=== PATIENT | female | born 1990 | race Caucasian/White ===

== ENCOUNTER → 2021-02-06 12:00 | Outpatient (BNVA) | payer MEDICAID, SELFPAY | PROVIDERS: Visit Provider Nurse Practitioner Family | DX: J32.0 Chronic maxillary sinusitis (principal) | CPT/HCPCS: 80053 ==

== ENCOUNTER → 2022-09-05 09:59 | Outpatient (BNVA) | payer MEDICAID, SELFPAY | PROVIDERS: PCP Nurse Practitioner Family; Visit Provider Nurse Practitioner Family | DX: Z30.09 Encounter for other general counseling and advice on contraception (principal) | CPT/HCPCS: 81025 ==

== ENCOUNTER 2023-06-20 15:21 | Emergency (ER) | payer MEDICAID, SELFPAY ==
[2023-06-20 15:40] VITALS: BP 146/99; PULSE 85; RESP 14; TEMP 36.8; O2SAT 100; BMI 29.4
--- NOTE | 2023-06-20 15:47 | W.ED.BACK ---
HPI - Back Pain/Injury General: Chief Complaint: Back Pain/Injury Stated Complaint: lower back pain Time Seen by Provider: 06/20/23 15:46 History of Present Illness: 34-year-old female comes in today with low back pain radiating to the right hip more so than the left. Patient states that she felt the pop in her right hip and since then has had pain radiating across the lower back. Patient is ambulatory. Patient appears nontoxic. Patient has had problems before in the past. 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 Review of Systems General: Reports: 10 or more systems reviewed and unremarkable except in HPI and below Musc: Reports: back pain PFSH ED PFSH: Social History Smoking and tobacco/nicotine status: current every day tobacco/nicotine user cigarettes Packs smoked per day: 0.5 Years cigarettes smoked: 15 Quit status (tobacco/nicotine): has tried quititng Number of times tried to quit tobacco: 2 Second hand smoke exposure: No Alcohol intake: current Alcohol intake frequency: few times a week Alcohol type: beer and hard liquor Substance/Drug Use: current Substance/Drug use frequency: daily Marital status: Physical Exam Const: COMMON NORMALS: alert HENMT: COMMON NORMALS: normocephalic HEAD & SCALP: normocephalic Neck/C-Spine: COMMON NORMALS: full ROM Resp: COMMON NORMALS: normal respiratory effort and clear to auscultation bilaterally AUSCULTATION: clear to auscultation bilaterally Cardio: COMMON NORMALS: regular rate and regular rhythm RATE: regular rate RHYTHM: regular rhythm Back/Pelvis: LUMBAR SPINE/LOWER BACK: No lumbar spinal tenderness and Yes paraspinal muscle tenderness SACROILIAC JOINTS: Yes SI joint(s) abnormal SI joint details: tender to palpation Extremity: COMMON NORMALS: full ROM Neuro: SENSORIUM/ORIENTATION: Yes alert Skin: COMMON NORMALS: turgor normal GENERAL SKIN EXAM: turgor normal Course Vital Signs: Vital signs: Vital Signs Temperature 98.3 F 06/20/23 15:40 Pulse Rate 85 06/20/23 15:40 Respiratory Rate 14 06/20/23 15:40 Blood Pressure 146/99 06/20/23 15:40 Pulse Oximetry 100 06/20/23 15:40 Oxygen Delivery Me thod Room Air 06/20/23 15:40 MDM - Back Pain/Injury Medical Decision Making 33-year-old female comes in today with low back pain radiating to right hip. Patient reports feeling a popping sensation in her right hip area about 2 days ago and since then has had increasing pain. Patient denies any other falls or injuries. Patient does have a history of prior symptoms but this seems to be persisting more. Differential diagnosis includes but not limited to intervertebral disc disease, facet arthropathy, lumbar strain, sciatica. X-ray was unremarkable. Reviewed exam with patient with recommendations for treatment and follow-up. Patient requested time off from work due to her manual lifting. I wrote for 1 week recommended follow-up with primary care at that time if she needs further time off. Patient reported understanding and agreed to plan. Labs Radiology Impressions Lumbar Spine X-Ray 06/20/23 15:57 IMPRESSION: 1. No acute fracture of the lumbar spine. CT scan would be recommended if there is continuing clinical concern for fracture. 2. Incidental/nonacute findings are listed in the report. All radiology interpretation(s) finalized by discharge Discharge Plan Discharge Patient Disposition: Home Clinical Impression: Strain of lumbar region Qualifiers: Encounter type: initial encounter Qualified Code(s): S39.012A - Strain of muscle, fascia and tendon of lower back, initial encounter Condition: Stable Prescriptions: New diclofenac sodium 75 mg tablet,delayed release (DR/EC) 75 mg PO BID Qty: 20 0RF cyclobenzaprine 5 mg tablet 5 mg PO BID PRN (Reason: muscle spasm) Qty: 20 0RF Discharge Orders: Discharge ED (Routine); Ordered 06/20/23 Ordered By: Quincy Jaramillo Referrals: Uzma Munoz FNP [Primary Care Provider] - Discharge Diet: Usual diet Discharge Activity: Increase activity as tolerated Patient Instructions: Low Back Strain (ED) Activity Restrictions/Additional Instructions: Activity as tolerated. Gentle stretching range of motion exercises. Use ice or heat for discomfort. Drink plenty of water with medication. May use muscle rub for further pain relief. Follow-up with primary care in 1 week for recheck. Return to ER for new concerns. 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
--- NOTE | 2023-06-20 15:57 | XRR_ITS ---
PROCEDURE INFORMATION: Exam: XR Lumbosacral Spine Exam date and time: 06/20/2023 4:04 PM Age: 33 years old Clinical indication: Low back pain TECHNIQUE: Imaging protocol: Radiologic exam of the lumbosacral spine. Views: 2 or 3 views. COMPARISON: No relevant prior studies available. FINDINGS: Bones/joints: 5 [id number] vertebral bodies. Vertebral body height is maintained. No subluxation. Normal bone mineralization. Intervertebral disc space height is preserved. No acute fracture. Soft tissues: No paravertebral soft tissue abnormality. No radiopaque foreign body. Vasculature: Multiple calcifications in the pelvis most likely representing calcified phleboliths. XR/XR lumbar spine 2-3V* [id number] IMPRESSION: 1. No acute fracture of the lumbar spine. CT scan would be recommended if there is continuing clinical concern for fracture. 2. Incidental/nonacute findings are listed in the report.
[2023-06-20] MEDS: dexamethasone 10 mg/mL INJ IM (16:58)
[2023-06-20] MEDS: orphenadrine 30 mg/mL Inj 2 mL 60 MG IM (16:59)
== END 2023-06-20 17:09 | disposition home or self-care (01) ==
PROVIDERS: Emergency Provider Nurse Practitioner Family; PCP Nurse Practitioner Family
DX: S39.012A Strain of muscle, fascia and tendon of lower back, initial encounter (principal); X58.XXXA Exposure to other specified factors, initial encounter
CPT/HCPCS: 72100; 96372; 99284; J1100; J2360

== ENCOUNTER 2023-08-31 15:12 | Emergency (ER) | payer MEDICAID, SELFPAY ==
[2023-08-31 15:20] VITALS: BP 159/95; PULSE 70; RESP 17; TEMP 36.7; O2SAT 99; BMI 31.2
--- NOTE | 2023-08-31 15:48 | ED_ITS ---
HPI - Abdominal Pain 2 General: Chief Complaint: Abdominal Pain Stated Complaint: genital pain Time Seen by Provider: 08/31/23 15:31 History of Present Illness: 33-year-old female presents with lower a bdominal pain discounted diffuse but mainly just suprapubic and diffuse around that. She reports start about an hour hour and a half ago. Her last menstrual period was about a month ago. She denies any urinary symptoms. She has some mild nausea, no vomiting. Associated Symptoms: Reports nausea; Denies chills, dysuria, fever(s) and vomiting Review of Systems 2 Const: Denies: fever(s) or chills Card: Denies: chest pain or palpitations Resp: Denies: dyspnea or productive cough GI: Reports: abdominal pain and nausea; Denies: vomiting : Denies: flank pain, difficulty voiding or dysuria Musc: Denies: neck pain or back pain Neuro: Denies: headache(s) PFSH ED 2 PFSH: Social History Smoking and tobacco/nicotine status: current every day tobacco/nicotine user cigarettes Packs smoked per day: 0.5 Years cigarettes smoked: 15 Quit status (tobacco/nicotine): has tried quititng Number of times tried to quit tobacco: 2 Second hand smoke exposure: No Alcohol intake: current Alcohol intake frequency: few times a week Alcohol type: beer and hard liquor Substance/Drug Use: current Substance/Drug use frequency: daily Marital status: Physical Exam 2 Const: COMMON NORMALS: no acute distress, patient oriented x3 and alert Resp: COMMON NORMALS: normal respiratory effort, No use of accessory muscles and clear to auscultation bilaterally AUSCULTATION: clear to auscultation bilaterally Cardio: COMMON NORMALS: regular rate and regular rhythm RATE: regular rate RHYTHM: regular rhythm GI: COMMON NORMALS: Soft to palpation PALPATION: Yes Soft to palpation and Yes Tenderness to palpation present (GI) (Suprapubic, lower abdomen) Extremity: COMMON NORMALS: normal to inspection, full ROM and capillary refill normal Neuro: COMMON NORMALS: patient oriented x3, moves all extremities, no focal motor deficits and no sensory deficits noted SENSORIUM/ORIENTATION: Yes alert Psych: COMMON NORMALS: mental status grossly normal, cooperative and normal affect Skin: COMMON NORMALS: no rashes or lesions noted GENERAL SKIN EXAM: no rashes or lesions noted Course 2 Vital Signs: Vital signs: Vital Signs Temperature 98.1 F 08/31/23 15:20 Pulse Rate 70 08/31/23 15:20 Respiratory Rate 17 08/31/23 15:20 Blood Pressure 159/95 08/31/23 15:20 Pulse Oximetry 99 08/31/23 15:20 Oxygen Delivery Me thod Room Air 08/31/23 15:20 MDM - Abdominal Pain Medical Decision Making Patient diagnostics ordered reviewed and interpreted by me. Patient's labs showed no acute findings. We discussed imaging such as CT or ultrasound. However at this time patient will defer and return if symptoms worsen. Patient has a history of ovarian cyst and is also close to when she should start her menstrual cycle. She will use [id number] Midol and ibuprofen as needed. I will prescribe her Zofran. She will follow-up with her OB or return if needed. Lab Data 08/31/23 15:49 08/31/23 15:49 Labs/Radiology: Laboratory Results WBC 4.33 10^3/uL (3.29-11.43) 08/31/23 15:49 RBC 4.08 10^6/uL (3.85-5.65) 08/31/23 15:49 Hgb 13.00 g/dL (11.27-16.99) 08/31/23 15:49 Hct 38.9 % (36-47) 08/31/23 15:49 MCV 95.3 fl (85-98) 08/31/23 15:49 MCH 31.9 pg (27-33) 08/31/23 15:49 MCHC 33.4 g/dL (30-55) 08/31/23 15:49 RDW 12.2 % (12.1-15.1) 08/31/23 15:49 Plt Count 159 10^3/cmm (157-399) 08/31/23 15:49 MPV 9.5 fL (7.4-10.4) 08/31/23 15:49 Neut % (Auto) 61.5 % 08/31/23 15:49 Lymph % (Auto) 31.6 % 08/31/23 15:49 [place] % (Auto) 5.5 % 08/31/23 15:49 Eos % (Auto) 0.9 % 08/31/23 15:49 Baso % (Auto) 0.5 % 08/31/23 15:49 Neut # (Auto) 2.66 10^3/uL (1.8-7.7) 08/31/23 15:49 Lymph # (Auto) 1.4 10^3/uL (0.8-4.8) 08/31/23 15:49 [place] # (Auto) 0.2 10^3/uL (0.2-0.9) 08/31/23 15:49 Eos # (Auto) 0.0 10^3/uL (0.0-0.8) 08/31/23 15:49 Baso # (Auto) 0.0 10^3/uL (0.0-0.1) 08/31/23 15:49 Nucleated RBC % (auto) 0 % 08/31/23 15:49 Nucleated RBCs # 0.0 /100WBC 08/31/23 15:49 Sodium 136 mmol/L (136-145) 08/31/23 15:49 Potassium 3.8 mmol/L (3.5-5.1) 08/31/23 15:49 Chloride 102 mmol/L (98-107) 08/31/23 15:49 Carbon Dioxide 24 mmol/L (22-29) 08/31/23 15:49 Anion Gap 13.8 (5-19) 08/31/23 15:49 BUN 16 mg/dL (6-20) 08/31/23 15:49 Creatinine 0.7 mg/dL (0.5-0.9) 08/31/23 15:49 GFR Calculation 97.0 mL/min (90-130) 08/31/23 15:49 Glucose 87 mg/dL (65-115) 08/31/23 15:49 Calculated Osmolality 283 mOsm/kg (285-295) L 08/31/23 15:49 Calcium 9.1 mg/dL (8.5-10.5) 08/31/23 15:49 Total Bilirubin 0.6 mg/dL (0.15-1.2) 08/31/23 15:49 AST 18 U/L (0-32) 08/31/23 15:49 ALT 20 U/L (0-33) 08/31/23 15:49 Alkaline Phosphatase 53 U/L (35-105) 08/31/23 15:49 Total Protein 7.1 g/dL (6.6-8.7) 08/31/23 15:49 Albumin 4.2 g/dL (3.5-5.2) 08/31/23 15:49 Globulin 2.9 g/dL (1.3-4.6) 08/31/23 15:49 Lipase 20 U/L (13-60) 08/31/23 15:49 HCG, Qual Negative (Negative) 08/31/23 16:19 Urine Color Yellow (Yellow) 08/31/23 16:19 Urine Appearance Clear (CLEAR) 08/31/23 16:19 Urine pH 6.5 (5-7) 08/31/23 16:19 Ur Specific [place] 1.015 (1.005-1.030) 08/31/23 16:19 Urine Protein Neg (Negative) 08/31/23 16:19 Urine Glucose (UA) Norm (Normal) 08/31/23 16:19 Urine Ketones Negative (Negative) 08/31/23 16:19 Urine Blood Neg (Negative) 08/31/23 16:19 Urine Nitrate Negative (Negative) 08/31/23 16:19 Urine Bilirubin Neg (Negative) 08/31/23 16:19 Urine Urobilinogen Norm mg/dL (Negative) 08/31/23 16:19 Ur Leukocyte Esterase Negative (Negative) 08/31/23 16:19 No radiology studies performed this visit Discharge Plan Discharge Patient Disposition: Home Clinical Impression: Lower abdominal pain, unspecified Condition: Stable Prescriptions: New ondansetron 4 mg tablet,disintegrating 4 mg PO Q8H PRN (Reason: nausea and vomiting) Qty: 20 0RF No Action diclofenac sodium 75 mg tablet,delayed release (DR/EC) 75 mg PO BID Qty: 20 0RF cyclobenzaprine 5 mg tablet 5 mg PO BID PRN (Reason: muscle spasm) Qty: 20 0RF Discharge Orders: Discharge ED (Routine); Ordered 08/31/23 Ordered By: Twan Moore Referrals: Uzma Munoz, ALDO [Primary Care Provider] - Discharge Diet: Usual diet Discharge Activity: Increase activity as tolerated Patient Instructions: Abdominal Pain (ED), Opioid Safety, Pain Management Activity Restrictions/Additional Instructions: Follow-up with your primary care provider or scientific linguist if symptoms not improving or return to the ER as needed. 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
[2023-08-31 15:53] LABS: Basophils % 0.5 %; Eosinophils % 0.9 %; Hematocrit 38.9 % (36-47); Lymphocytes # 1.4 10^3/uL (0.8-4.8); Lymphocytes % 31.6 %; Mean Corpuscular HGB Conc 33.4 g/dL (30-55); Mean Corpuscular Hemoglobin 31.9 pg (27-33); Mean Corpuscular Volume 95.3 fl (85-98); Mean Platelet Volume 9.5 fL (7.4-10.4); Monocytes # 0.2 10^3/uL (0.2-0.9); Monocytes % 5.5 %; Neutrophils # 2.66 10^3/uL (1.8-7.7); Neutrophils % 61.5 %; Nucleated Red Blood Cells % 0 %; Platelet Count 159 10^3/cmm (157-399); Red Blood Count 4.08 10^6/uL (3.85-5.65); Red Cell Distribution Width 12.2 % (12.1-15.1); White Blood Count 4.33 10^3/uL (3.29-11.43)
[2023-08-31 16:09] LABS: Alanine Aminotransferase 20 U/L (0-33); Albumin Level 4.2 g/dL (3.5-5.2); Alkaline Phosphatase 53 U/L (35-105); Anion Gap 13.8 (5-19); Aspartate Amino Transferase 18 U/L (0-32); Blood Urea Nitrogen 16 mg/dL (6-20); Calcium 9.1 mg/dL (8.5-10.5); Carbon Dioxide 24 mmol/L (22-29); Chloride 102 mmol/L (98-107); Creatinine Clr Calc Pharmacy 102.6011; Globulin 2.9 g/dL (1.3-4.6); Glucose 87 mg/dL (65-115); Lipase 20 U/L (13-60); Osmolality Calculated 283 mOsm/kg (285-295); Potassium 3.8 mmol/L (3.5-5.1); Sodium 136 mmol/L (136-145); Total Bilirubin 0.6 mg/dL (0.15-1.2); Total Protein 7.1 g/dL (6.6-8.7)
[2023-08-31 16:51] LABS: HCG Qualitative Urine. Negative (Negative)
[2023-08-31] MEDS: ketorolac 30 mg/mL INJ 15 MG IVP (17:07)
[2023-08-31 17:11] LABS: Add Urine Microscopic? NO; Charge for UA Resulting for Rev
[2023-08-31 17:14] LABS: Bilirubin Urine Neg (Negative); Blood Urine Neg (Negative); Glucose Urine UA Norm (Normal); Ketones Urine Negative (Negative); Leukocyte Esterase Urine Negative (Negative); Nitrate Urine Negative (Negative); Protein Urine Neg (Negative); Specific Gravity, Urine 1.015 (1.005-1.030); Urine Appearance Clear (CLEAR); Urine Color Yellow (Yellow); Urobilinogen Urine Norm (Negative); pH Urine 6.5 (5-7)
== END 2023-08-31 18:07 | disposition home or self-care (01) ==
PROVIDERS: Emergency Provider Student in an Organized Health Care Education/Training Program; PCP Nurse Practitioner Family
DX: R10.30 Lower abdominal pain, unspecified (principal); F17.210 Nicotine dependence, cigarettes, uncomplicated
CPT/HCPCS: 80053; 81003; 81025; 83690; 85025; 96374; 99284; J1885

== ENCOUNTER 2024-04-19 10:55 | Emergency (ER) | payer OTHER, MEDICAID, SELFPAY ==
[2024-04-19 11:04] VITALS: BP 149/99; PULSE 85; RESP 15; TEMP 36.7; O2SAT 100; BMI 36.1
[2024-04-19 13:17] LABS: Basophils % 0.2 %; Eosinophils # 0.1 10^3/uL (0.0-0.8); Eosinophils % 0.9 %; Hematocrit 35.8 % (36-47); Lymphocytes # 1.8 10^3/uL (0.8-4.8); Mean Corpuscular HGB Conc 34.4 g/dL (30-55); Mean Corpuscular Hemoglobin 31.5 pg (27-33); Mean Corpuscular Volume 91.6 fl (85-98); Mean Platelet Volume 9.6 fL (7.4-10.4); Monocytes # 0.3 10^3/uL (0.2-0.9); Monocytes % 4.7 %; Neutrophils # 3.54 10^3/uL (1.8-7.7); Nucleated Red Blood Cells % 0 %; Platelet Count 189 10^3/cmm (157-399); Red Blood Count 3.91 10^6/uL (3.85-5.65); Red Cell Distribution Width 11.7 % (12.1-15.1); White Blood Count 5.71 10^3/uL (3.29-11.43)
[2024-04-19 13:37] VITALS: BP 136/87; PULSE 62; RESP 14; O2SAT 98
--- NOTE | 2024-04-19 14:25 | USR_ITS ---
PROCEDURE INFORMATION: Exam: US First Trimester, Transabdominal Exam date and time: 04/19/2024 3:38 PM Age: 34 years old Clinical indication: Lmp or gestational age (in weeks): 11w2d; Antepartum complications; Bleeding; ; Additional info: Vaginal bleeding LABS AND CLINICAL REPORTS: Last menstrual period start date: 12/29/2023 Gestational age (Established): 16 w 0 d Estimated due date (Established): 10/04/2024 TECHNIQUE: Imaging protocol: Real-time transabdominal obstetrical ultrasound of the maternal pelvis and a first trimester , less than 14 weeks 0 days, with image documentation. COMPARISON: No relevant prior studies available. FINDINGS: GESTATION: Gestation: Single intrauterine gestation. Yolk sac is regular and round in morphology. Embryo/ cardiac activity (BPM): 170 bpm. heart rate of 170 bpm. Extra-embryonic membranes/Placenta: Unremarkable. No subchorionic bleed. Amniotic/Chorionic fluid: Amniotic and extra-amniotic fluid are normal for gestational age. BIOMETRY: Gestational age: Estimated age by last menstrual period is 16 weeks and 0 days MATERNAL: Uterus: Unremarkable. Cervix: Cervical length measures 5.7 cm. There is some fluid within the endocervical canal. Cervical length of 5.7 cm. The cervix appears closed. Right ovary/adnexa: Preserved flow to the right ovary. Left ovary/adnexa: Preserved flow to the left ovary. Intraperitoneal space: There is no free fluid in the pelvic cul-de-sac. Other findings: Estimated age by last menstrual. of 16 weeks and 0 days. US/US OB <= 14 weeks fetus [id number] IMPRESSION: Single live intrauterine gestation as above.
[2024-04-19 14:26] VITALS: BP 138/91; PULSE 74; RESP 14; O2SAT 99
--- NOTE | 2024-04-19 14:26 | ED_ITS ---
HPI - 2 General: Chief complaint: Vaginal Bleeding Stated complaint: 16-20 weeks , spotting Time Seen by Provider: 04/19/24 13:41 Source: patient and family Mode of arrival: ambulatory Limitations: no limitations History of Present Illness: This patient presented to the emergency department today because she is concerned about status of her . She states that her last normal period was probably in December 2023 and that she eventually discovered she was by home test in March. She has not had care to date. Today she is here because she had vaginal bleeding with her first a.m. urine and urine output this morning. She was confident it was not from her urinary tract but was vaginal bleeding. She states that she has had a little bit of spotting since that time and some mild cramping but nothing of concern or no severe pains. She is a A3. She has no history of any significant complications. She is blood type O Rh+. She denies recent intercourse in the last few days. 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 She denies any dysuria hematuria, frequency etc. No fevers or chills. No current medications. MD Complaint: vaginal bleeding Associated symptoms: Deny abdominal pain, dysuria, headache(s), nausea, syncope or vomiting Related Data Home Medications ?Medication ?Instructions ?Recorded ?Confirmed No Known Home Medications 04/19/2412/03 Allergies Allergy/AdvReac Type Severity Reaction Status Date / Time No Known Allergies Allergy Verified 08/31/23 15:23 Review of Systems 2 Const: Denies: fever(s) or chills ENMT: Denies: throat pain, odynophagia, nasal discharge or nasal congestion Card: Denies: chest pain, palpitations, syncope or pre-syncope Resp: Denies: dyspnea, productive cough or non-productive cough GI: Denies: abdominal pain, nausea or vomiting : Reports: vaginal bleeding; Denies: flank pain, difficulty voiding, dysuria or hematuria Musc: Denies: neck pain, back pain or extremity pain Skin/Breast: Denies: rash Neuro: Denies: headache(s), numbness in extremities or weakness in extremities Endo: Denies: polyuria or polydipsia PFSH ED 2 PFSH: Social History Smoking and tobacco/nicotine status: current every day tobacco/nicotine user cigarettes Packs smoked per day: 0.5 Years cigarettes smoked: 15 Quit status (tobacco/nicotine): has tried quititng Number of times tried to quit tobacco: 2 Second hand smoke exposure: No Alcohol intake: current Alcohol intake frequency: few times a week Alcohol type: beer and hard liquor Substance/Drug Use: current Substance/Drug use frequency: daily Marital status: Physical Exam 2 Narrative: EXAM NARRATIVE: She is alert in no acute distress and comfortable. Const: COMMON NORMALS: no acute distress, average body habitus and patient oriented x3 GENERAL APPEARANCE: cooperative and comfortable HENMT: COMMON NORMALS: normocephalic, Normal nasal mucous membranes and turbinates present and moist oral mucous membranes HEAD & SCALP: n ormocephalic NOSE: Normal nasal mucous membranes and turbinates present Eye: COMMON NORMALS: Equal, round and reactive pupils present, EOMs intact bilaterally and conjunctivae normal CONJUNCTIVA: Yes conjunctivae normal P UPIL: Yes Equal, round and reactive pupils present Neck/C-Spine: COMMON NORMALS: full ROM and Thyroid normal THYROID: Thyroid normal Chest: COMMONS NORMALS: normal inspection of the chest Resp: COMMON NORMALS: normal respiratory effort, No use of accessory muscles and clear to auscultation bilaterally AUSCULTATION: clear to auscultation bilaterally Cardio: COMMON NORMALS: regular rate, regular rhythm, No murmurs present (Cardio) and Peripheral pulses 2+ throughout RATE: regular rate RHYTHM: r egular rhythm PERIPHERAL PULSES: Peripheral pulses 2+ throughout GI: COMMON NORMALS: Normal to inspection, nondistended, normoactive bowel sounds present, Soft to palpation and non-tender PALPATION: Yes Soft to palpation : COMMON NORMALS: Yes no CVA tenderness BLADDER/KIDNEY EXAM: Yes no CVA tenderness EXTERNAL FEMALE EXAM: Yes Abnormal introitus SPECULUM EXAM - VAGINA: No laceration and No Vaginal discharge present SPECULUM EXAM - CERVIX: Yes Cervical os closed and Yes Other cervical findings present (Minimal cervical irritation and friability) Back/Pelvis: COMMON NORMALS: no CVA tenderness, thoracic and lumbar spine normal to inspection, no thoracic nor lumbar tenderness and thoraco-lumbar ROM normal Extremity: COMMON NORMALS: normal to inspection Neuro: COMMON NORMALS: patient oriented x3, moves all extremities, no focal motor deficits and no sensory deficits noted Psych: COMMON NORMALS: mental status grossly normal Skin: COMMON NORMALS: no rashes or lesions noted and no jaundice GENERAL SKIN EXAM: no rashes or lesions noted Course 2 Reevaluation(s): Reevaluation #1: radiation / 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 Time: 15:52 Vital Signs: Vital signs: Vital Signs Temperature 98.1 F 04/19/24 11:04 Pulse Rate 74 04/19/24 14:26 Respiratory Rate 14 04/19/24 14:26 Blood Pressure 138/91 04/19/24 14:26 Pulse Oximetry 99 04/19/24 14:26 Oxygen Delivery Me thod Room Air 04/19/24 14:26 MDM - OB/Uterine Contractions Medical Decision Making Patient presented as noted in HPI. Uncertain gestation at this point but based on LMP data probably between 16 and 20 weeks. Had an episode of vaginal bleeding this morning without any known inciting event. She has type O Rh+. She has a nontender abdomen. No history of use of Clomid or other fertility medications and no history of PID. Hemoglobin and platelet count are normal. Will go ahead and proceed with a formal OB ultrasound to establish current status. Ultrasound was obtained which was reassuring and showed intrauterine gestation without any evidence of extrauterine masses, free pelvic fluid or other concerning findings suggestive of that at this time there is no evidence of ovarian torsion, ovarian mass, ectopic etc. After ultrasounds completed a speculum examination was completed. There was a small amount of friability noted at the cervix but there was no discharge no lacerations or any other introital cervical or vaginal abnormalities. At this time she is stable without any evidence of an ongoing emergency medical condition. No evidence of a threatened AB etc. We discussed current etiologies of bleeding, need for pelvic rest, need for OB follow-up for reevaluation. She voiced understanding. Stable for discharge. Lab Data I reviewed the patient's lab results. 04/19/24 13:05 Radiology Impressions Ultrasound 04/19/24 14:25 IMPRESSION: Single live intrauterine gestation as above. Laboratory Results WBC 5.71 10^3/uL (3.29-11.43) 04/19/24 13:05 RBC 3.91 10^6/uL (3.85-5.65) 04/19/24 13:05 Hgb 12.30 g/dL (11.27-16.99) 04/19/24 13:05 Hct 35.8 % (36-47) L 04/19/24 13:05 MCV 91.6 fl (85-98) 04/19/24 13:05 MCH 31.5 pg (27-33) 04/19/24 13:05 MCHC 34.4 g/dL (30-55) 04/19/24 13:05 RDW 11.7 % (12.1-15.1) L 04/19/24 13:05 Plt Count 189 10^3/cmm (157-399) 04/19/24 13:05 MPV 9.6 fL (7.4-10.4) 04/19/24 13:05 Neut % (Auto) 62.0 % 04/19/24 13:05 Lymph % (Auto) 32.0 % 04/19/24 13:05 [place] % (Auto) 4.7 % 04/19/24 13:05 Eos % (Auto) 0.9 % 04/19/24 13:05 Baso % (Auto) 0.2 % 04/19/24 13:05 Neut # (Auto) 3.54 10^3/uL (1.8-7.7) 04/19/24 13:05 Lymph # (Auto) 1.8 10^3/uL (0.8-4.8) 04/19/24 13:05 [place] # (Auto) 0.3 10^3/uL (0.2-0.9) 04/19/24 13:05 Eos # (Auto) 0.1 10^3/uL (0.0-0.8) 04/19/24 13:05 Baso # (Auto) 0.0 10^3/uL (0.0-0.1) 04/19/24 13:05 Nucleated RBC % (auto) 0 % 04/19/24 13:05 Nucleated RBCs # 0.0 /100WBC 04/19/24 13:05 Ser , Semi-Qnt 09996.00 mIU/mL 04/19/24 13:05 Urine Color Yellow (Yellow) 04/19/24 16:08 Urine Appearance Clear (CLEAR) 04/19/24 16:08 Urine pH 7.0 (5-7) 04/19/24 16:08 Ur Specific [place] 1.011 (1.005-1.030) 04/19/24 16:08 Urine Protein Negative (Negative) 04/19/24 16:08 Urine Glucose (UA) Negative (Normal) 04/19/24 16:08 Urine Ketones Negative (Negative) 04/19/24 16:08 Urine Blood Negative (Negative) 04/19/24 16:08 Urine Nitrate Negative (Negative) 04/19/24 16:08 Urine Bilirubin Negative (Negative) 04/19/24 16:08 Urine Urobilinogen 0.2 mg/dL (Negative) 04/19/24 16:08 Ur Leukocyte Esterase Negative (Negative) 04/19/24 16:08 Urine RBC 0-2 /hpf (0-2) 04/19/24 16:08 Urine WBC 0-5 /hpf (0-5) 04/19/24 16:08 Ur Squamous Epith Cells 0-5 /hpf (0-5) 04/19/24 16:08 Amorphous Sediment Not Reportable 04/19/24 16:08 Urine Bacteria None seen /hpf (NONE) 04/19/24 16:08 Hyaline Casts 0-4 /lpf H 04/19/24 16:08 Blood Type O Positive 04/19/24 13:05 Rho(D) Type Rh positive 04/19/24 13:05 All radiology interpretation(s) finalized by discharge Discharge Plan Discharge Patient Disposition: Home Clinical Impression: Vaginal bleeding in , Intrauterine Condition: Stable Prescriptions: No Action No Known Home Medications Discharge Orders: Discharge ED (Routine); Ordered 04/19/24 Ordered By: Abiel Farias Referrals: Uzma Munoz FNP [Primary Care Provider] - Discharge Diet: Usual diet Discharge Activity: Limit activity as instructed Patient Instructions: Opioid Safety, Pain Management Activity Restrictions/Additional Instructions: As we discussed while you are in the Emergency Department there is no evidence of any serious condition at this time. You have a normal at approximately 11-1/2 weeks. You do have some irritation of your cervix which may be causing your bleeding however this needs to be followed up by your forest fire officer. Please call and make arrangements for OB follow-up this coming week. If you have increased bleeding or any other concerns return to this or the nearest emergency department. Until you get OB follow-up we do not recommend using tampons, having sexual intercourse etc. Print Language: Bel[place]ian Coding Level of Care Code ED Home Specialist for Hank Britt
[2024-04-19 16:23] LABS: Bilirubin Urine Negative (Negative); Blood Urine Negative (Negative); Glucose Urine UA Negative (Normal); Ketones Urine Negative (Negative); Leukocyte Esterase Urine Negative (Negative); Nitrate Urine Negative (Negative); Protein Urine Negative (Negative); Specific Gravity, Urine 1.011 (1.005-1.030); Urine Appearance Clear (CLEAR); Urine Color Yellow (Yellow); Urobilinogen Urine 0.2 mg/dL (Negative)
[2024-04-19 16:34] LABS: Add Urine Microscopic? YES; Bacteria Urine None Seen /hpf; Hyaline Casts Urine 0-4 /lpf; RBC Urine 0-2 /hpf (0-2); Squamous Epithelial Cell Urine 0-5 /hpf (0-5); WBC Urine 0-5 /hpf (0-5)
[2024-04-19 18:24] VITALS: BP 157/90; PULSE 66; O2SAT 99
== END 2024-04-19 18:33 | disposition home or self-care (01) ==
PROVIDERS: Emergency Provider Emergency Medicine; PCP Nurse Practitioner Family
DX: O20.9 Hemorrhage in early pregnancy, unspecified (principal); F17.210 Nicotine dependence, cigarettes, uncomplicated
CPT/HCPCS: 76801; 81001; 84702; 85025; 86900; 99284; E0352

== ENCOUNTER 2024-10-28 14:34 | Outpatient (CLI) | payer MEDICAID, SELFPAY ==
[2024-10-28 14:46] VITALS: BP 136/87; PULSE 97
[2024-10-28 14:51] VITALS: BMI 40.6
[2024-10-28 15:03] VITALS: BP 131/88; PULSE 106
== END 2024-10-28 15:15 | disposition home or self-care (01) ==
LOC: OPOB 14:35 → OBGYN 14:36
PROVIDERS: PCP Nurse Practitioner Family; Visit Provider Family Medicine
DX: O26.899 Other specified pregnancy related conditions, unspecified trimester (principal); Z3A.00 Weeks of gestation of pregnancy not specified
CPT/HCPCS: 59025; 99211

== ENCOUNTER 2024-11-07 15:41 | Inpatient (IN) | payer OTHER, MEDICAID, SELFPAY ==
[2024-11-07] VITALS (40 sets, daily range): BP systolic 115–158; BP diastolic 59–97; PULSE 74–100; RESP 16–18; TEMP 36.3–37; O2SAT 96–99; BMI 39.9
[2024-11-07 15:07] LABS: Hematocrit 33.4 % (36-47); Hemoglobin 11.30 g/dL (11.27-16.99); Mean Corpuscular HGB Conc 33.8 g/dL (30-55); Mean Corpuscular Hemoglobin 30.6 pg (27-33); Mean Corpuscular Volume 90.5 fl (85-98); Nucleated Red Blood Cells % 0 %; Platelet Count 222 10^3/cmm (157-399); Red Blood Count 3.69 10^6/uL (3.85-5.65); White Blood Count 7.44 10^3/uL (3.29-11.43)
[2024-11-07 15:20] LABS: PCP Screen Urine Negative (Negative)
[2024-11-07] MEDS: oxytocin 30 UNIT/500 ML BAG IV (16:01)
[2024-11-07] MEDS: fentaNYL 50 mcg/mL INJ 2mL IVP (18:38)
[2024-11-07] MEDS: ROPivacaine syringe 100 MG/50 ML SYRINGE 10 MG EPIDURAL (19:58)
--- NOTE | 2024-11-07 20:01 | ANES.PREANE2 ---
Pre-Anesthetic Assessment Height/Weight: Height 1.57 m Weight 98.883 kg Temp Pulse Resp BP Pulse Ox O2 Del Method 98.6 F 84 18 151/89 99 Room Air 11/07/24 14:50 11/07/24 19:55 11/07/24 18:38 11/07/24 19:55 11/07/24 19:55 11/07/24 15:05 Preop Diagnosis: Active Labor Labor Epidural Familial anesthetic complications: none Was Beta Cris taken within 24 hours: N/A Was Clonidine taken within 24 hours: N/A Last intake: clears current Social Tobacco (+THC) Exam alert, oriented x 3 and clear to auscultation bilaterally Airway Submandibular: within normal limits Cervical ROM: within normal limits Mallampati: Class I Dentition: full History/ROS No significant history except as noted Pulmonary None reported CV/HEM None reported None reported Hepatic None reported GI Gastroesophageal Reflux Disease Metabolic None reported Musc/skel None reported Neuropsych None reported denies recent infections Anesthetic Plan ASA status: 2 Anesthesia: Regional (specify below) Other: Labor Epidural Medications/Allergies Home Medications ?Medication ?Instructions ?Recorded ?Confirmed ?Last Taken ?Type Baby Aspirin 81 mg PO DAILY 10/28/24 11/07/24 10/28/24 History 1 cap PO DAILY 10/28/24 11/07/24 10/28/24 History Allergies Allergy/AdvReac Type Severity Reaction Status Date / Time No Known Allergies Allergy Verified 10/28/24 14:55 Current Medications Generic Name Dose Route Start Last Admin Trade Name Freq PRN Reason Stop Dose Admin Fentanyl 25 - 100 mcg 11/07/24 14:17 11/07/24 18:38 Fentanyl 50 Mcg/Ml Inj 2ml IVP 25 mcg Q1H PRN Administration SEVERE PAIN Dextrose/Lactated Ringer's 1,000 mls @ 125 mls/hr 11/07/24 14:30 11/07/24 18:38 Dextrose 5%-Lactated Ringers IV 0 mls/hr .Q8H ELENA Infusion Oxytocin 30 unit in 500 mls @ 1 mls/hr 11/07/24 14:45 11/07/24 18:00 Pitocin IV 9 milliunit/min .Q24H ELENA 9 mls/hr Protocol Titration 1 MILLIUNIT/MIN Lactated Ringer's 1,000 mls @ 999 mls/hr 11/07/24 15:42 11/07/24 18:38 Lactated Ringers IV 999 mls/hr .Q1H1M PRN Administration See label comments [facility] Anesthesia Social History Smoking and tobacco/nicotine status: current every day tobacco/nicotine user cigarettes Packs smoked per day: 0.5 Years cigarettes smoked: 15 Quit status (tobacco/nicotine): has tried quititng Number of times tried to quit tobacco: 2 Second hand smoke exposure: No Alcohol intake: current Alcohol intake frequency: few times a week Alcohol type: beer and hard liquor Substance/Drug Use: current Substance/Drug use frequency: daily Marital status: Female Reproductive History : 6 Data Anesthesia 11/07/24 14:30 Short CBC 11/07/24 Range/Units 14:30 WBC 7.44 (3.29-11.43) 10^3/uL Hgb 11.30 (11.27-16.99) g/dL Hct 33.4 L (36-47) % MCV 90.5 (85-98) fl Plt Count 222 (157-399) 10^3/cmm Neut % (Auto) 72.0 % Neut # (Auto) 5.36 (1.8-7.7) 10^3/uL Blood Bank 11/07/24 14:30 Blood Type O Positive Rho(D) Type Rh positive Antibody Screen Negative Anesthesia Procedures Epidural Time Out Performed: Yes Consents Signed: Procedure Consent Consent: from patient, risks and benefits reviewed and patient agrees to proceed Lumbar Level: L3-L4 Epidural position: sitting Epidural procedure: sterile prep of area, 1% lidocaine to numb the area, negative for paresthesia passed, test dose given, 1.5% xylocaine 1:200k epi, placed PCEA, no systemic response, sterile dressing applied, L.U.D. no apparent complications and 0.2% Ropiavacaine @ mls/hr (10) Additional Comments: TOMÁS @ 6cm , first attempt, - heme -csf. catheter threaded to 12cm with ease. Adequate analgesia achieved. CSE 0.5 ml 0.25% Bupivicaine given intrathecally.
--- NOTE | 2024-11-07 20:52 | PM.OPHPUD ---
Labor & Delivery H&P Update Date of Procedure: November 07, 2024 Date H&P Performed: 11/04/24 Admission Diagnosis: at 39 weeks 3 days gestation Preop diagnosis: Induction
--- NOTE | 2024-11-07 20:53 | P.PCNOB_ITS ---
Delivery Note: Date of delivery: November 07, 2024 Estimated blood loss (mL): 250 Pre-Delivery Course: The patient had routine care at [facility]. She had a history of prior preeclampsia and was on low-dose aspirin during the . labs: Blood type O+ antibody negative, hepatitis B nonreactive, hepatitis C nonreactive, HIV nonreactive, rubella immune, GC chlamydia negative, RPR nonreactive, UDS positive for marijuana, she failed her 1 hour but passed the 3-hour glucose tolerance test, she was GBS negative. Delivery: This is a 34-year-old G6, P2 at 39 weeks 3 days gestation who was admitted for an induction. The patient's cervix was favorable and she was started on Pitocin. She had spontaneous rupture of membranes with clear fluid. She progressed rather rapidly after that and received CSE anesthesia. She only had to push through half of a contraction to have a normal spontaneous vaginal delivery of a viable male infant weight 3230 g, 7 pounds 2 ounces, Apgars 8 and 9 over an intact perineum. The was suctioned at delivery and placed on the mother's chest. After good 60 seconds the cord was clamped and cut. With gentle traction the cord easily avulsed from the placenta. The placenta was then grasped and manually extracted in 1 piece. It was grossly normal to inspection. There were first-degree periclitoral lacerations that did not require sutures. There was a first-degree midline vaginal laceration that did not require suturing. Mother and were doing well after delivery. A&P Assessment and plan 1. Normal spontaneous vaginal delivery: 2. Sterilization consult: The patient had previously requested bilateral tubal ligation and had signed Medicaid form. If she still wishes to proceed we will schedule for tomorrow. PDMP PDMP Reviewed: Not Reviewed Coding Level of Care Code Acute Code for Chg Fwd Diagnoses Normal spontaneous vaginal delivery O80 Sterilization consult Z30.09
[2024-11-08] VITALS (17 sets, daily range): BP systolic 102–146; BP diastolic 66–89; PULSE 69–104; RESP 15–17; TEMP 36.6–37.1; O2SAT 90–99; BMI 39.9
[2024-11-08] MEDS: benzocaine-menthol 78 gm Canister 1 SPRAY TOPICAL (00:27)
[2024-11-08] MEDS: citric acid-sodium citrate 30 mL UDC PO (08:48)
[2024-11-08] MEDS: metoclopramide 5 mg/mL SDV 2 mL 10 MG IVP (08:49)
--- NOTE | 2024-11-08 08:50 | P.ANESUD_ITS ---
Pre-Anesthetic Update Pre-Anesthetic Assessment: Date of Surgery/Procedure: 11/08/24 Preop Neha gnosis: desired sterility Proposed Procedure: Operation Date: 11/08/24 09:10 Proposed Procedures p Post Bilateral Tubal Ligation(Bilateral) - Janene Logan MD Any changes to Pre-Anesthetic Assessment?: No Last Intake: soilds 11/07 2300, liquids 11/07 0000 Labs Last 48hrs: Short CBC 11/07/24 Range/Units 14:30 WBC 7.44 (3.29-11.43) 10^ 3/uL Hgb 11.30 (11.27-16.99) g/ dL Hct 33.4 L (36-47) % MCV 90.5 (85-98) fl Plt Count 222 (157-399) 10^3/c mm Neut % (Auto) 72.0 % Neut # (Auto) 5.36 (1.8-7.7) 10^3/u L Blood Bank 11/07/24 14:30 Blood Type O Positive Rho(D) Type Rh positive Antibody Screen Negative Vitals: Temperature 98.4 F 11/08/24 06:35 Temperature Source Oral 11/08/24 06:35 Pulse Rate 84 11/08/24 04:45 Pulse Rhythm Regular 11/07/24 15:05 Respiratory Rate 16 11/08/24 06:35 Respiratory Effort Spontaneous, Non- Labored 11/07/24 18:38 Respiratory Depth Normal 11/07/24 18:38 Respiratory Patter n Normal 11/07/24 18:38 Blood Pressure 126/78 11/08/24 06:35 Blood Pressure Lelo n 94 11/08/24 06:35 Blood Pressure Pos ition Left Lateral 11/08/24 01:55 Pulse Oximetry 99 11/08/24 04:45 Oxygen Delivery Me thod Room Air 11/08/24 04:45 Exam: Pre-Anes Outpt Exam: alert, oriented x 3 and clear to auscultation bilaterally
--- NOTE | 2024-11-08 09:00 | PM.HP ---
Providers/Chief Complaint Admitting Physician: Janene Logan MD Primary Care Provider: ALDO Bowman Chief Complaint: IOL History of Present Illness Maren No is a 34 year old female G6 now P3 who had a normal spontaneous vaginal delivery of a viable male infant yesterday evening. The patient previously expressed desire and signed Medicaid form wanting to proceed with bilateral tubal ligation. She is scheduled for the procedure this morning. She has no questions or concerns. Review of Systems Narrative: No fevers chills, no chest pain or shortness of breath, average vaginal bleeding, no abdominal tenderness Medications/Allergies Home Medications ?Medication ?Instructions ?Recorded ?Confirmed ?Last Taken ?Type Baby Aspirin 81 mg PO DAILY 10/28/24 11/07/24 10/28/24 History 1 cap PO DAILY 10/28/24 11/07/24 10/28/24 History Allergies Allergy/AdvReac Type Severity Reaction Status Date / Time No Known Allergies Allergy Verified 10/28/24 14:55 PFSH Acute PFSH: Social History Smoking and tobacco/nicotine status: current every day tobacco/nicotine user cigarettes Packs smoked per day: 0.5 Years cigarettes smoked: 15 Quit status (tobacco/nicotine): has tried quititng Number of times tried to quit tobacco: 2 Second hand smoke exposure: No Alcohol intake: current Alcohol intake frequency: few times a week Alcohol type: beer and hard liquor Substance/Drug Use: current Substance/Drug use frequency: daily Marital status: Female Reproductive History: : 6 Para: 3 Spontaneous abortions: Yes (3) Vitals/I&O/Wt Last Vital Signs Temp 98.4 F 11/08/24 06:35 Pulse 84 11/08/24 04:45 Resp 16 11/08/24 06:35 BP 126/78 11/08/24 06:35 Pulse Ox 99 11/08/24 04:45 O2 Del Method Room Air 11/08/24 04:45 11/07/24 11/08/24 11/08/24 22:59 06:59 14:59 Intake Total 337.066 / 337.066 Balance 337.066 / 337.066 Weight last 48 hrs Weight 98.883 kg Weight 98.883 kg Physical Exam Narrative: Alert and oriented, sitting up in bed holding the infant, heart regular rate and rhythm, lungs clear to auscultation bilaterally, abdomen is soft and nontender, extremities have 1+ edema but no calf tenderness. Data 11/07/24 14:30 A&P Assessment and plan 1. Sterilization consult: Patient is aware that bilateral tubal ligation is considered permanent and not reversible. She would still like to proceed. PDMP PDMP Reviewed: Not Reviewed Attestations Medical Necessity Statement*: Routine surgery and care Coding Level of Care Code Acute Code for Chg Fwd Diagnoses Sterilization consult Z30.09
[2024-11-08] MEDS: lidocaine-epi 1% 20 mL INJ INJECTION (09:06)
[2024-11-08] MEDS: ceFAZolin 2,000 mg SDV 2000 MG IVP (09:07)
--- NOTE | 2024-11-08 10:36 | PM.OP ---
Operative Report Date of procedure: November 08, 2024 Pre-op diagnosis: Desired permanent surgical sterilization Post-op diagnosis: Same Procedure done: bilateral tubal ligation Specimens removed/disposition: Segments of right and left fallopian tubes Pathology: Segments of right and left fallopian tubes Surgeon: Janene Logan MD Estimated blood loss (mL): 2 IV fluids (mL): 700 Complications: None Procedure: After informed consent the patient was taken to the OR where general anesthesia was administered. She was prepped and draped in normal sterile fashion in dorsal supine position. A curvilinear infraumbilical incision was made through the skin sharply and then carried through bluntly to the underlying fascia. The fascia was grasped with Allis clamps and entered sharply using the [place]zen[place]. The peritoneum was then entered bluntly. The left fallopian tube was grasped with a [place] and brought into the operative field. Fimbria were visualized. The distal portion of the tube was ligated and excised. Tubal ostia were visualized. The cut portions of the tube were coagulated using the Bovie and hemostasis was obtained prior to returning them to the abdomen. Segment of the tube was sent to pathology. The right fallopian tube was then grasped with a Y[place] and brought into the operative field. Fimbria were visualized. A distal portion of the tube was ligated and excised. Segment of the tube was sent to pathology. Cut portions of the tube were coagulated with the Bovie. Excellent hemostasis was obtained. Portions of the tube were returned to the abdomen. The fascia was then reapproximated using 0 Vicryl in a running fashion. The skin was then reapproximated using 4-0 Vicryl in a running fashion. 10 mL of 2% lidocaine was injected circumferentially around the incision site. Steri-Strips and a pressure bandage were applied. Patient was awakened and taken to recovery in good condition. Sponge instrument and needle counts were correct.
--- NOTE | 2024-11-08 10:43 | P.PN_ITS ---
Subjective 2 Subjective: Patient is doing well. She is ambulating and is n.p.o. for her procedure this morning. Vitals/I&O/Wt Last Vital Signs Temp 98.4 F 11/08/24 06:35 Pulse 84 11/08/24 04:45 Resp 16 11/08/24 06:35 BP 126/78 11/08/24 06:35 Pulse Ox 99 11/08/24 04:45 O2 Del Method Room Air 11/08/24 04:45 11/07/24 11/08/24 11/08/24 22:59 06:59 14:59 Intake Total 337.066 / 337.066 Balance 337.066 / 337.066 Weight last 48 hrs Weight 98.883 kg Weight 98.883 kg Physical Exam 2 Narrative: Alert and oriented sitting up in bed feeding infant, heart regular rate and rhythm, lungs clear to auscultation bilaterally, abdomen is soft and nontender, extremities have 1+ edema but no calf tenderness Data 11/08/24 12:10 A&P Assessment and plan 1. Normal spontaneous vaginal delivery: Routine care 2. Sterilization consult: Routine bilateral tubal ligation this morning with routine postoperative care PDMP PDMP Reviewed: Not Reviewed Attestations 2 Medical Necessity Statement*: Routine care Coding Level of Care Code Acute Code for Chg Fwd Diagnoses Normal spontaneous vaginal delivery O80 Sterilization consult Z30.09
[2024-11-08] MEDS: HYDROcodone-acetaminophen 5-325 mg Tablet 1 TAB PO ×3 (11:41→20:46)
[2024-11-08 13:07] LABS: Hematocrit 28.9 % (36-47); Hemoglobin 9.60 g/dL (11.27-16.99); Mean Corpuscular HGB Conc 33.2 g/dL (30-55); Mean Corpuscular Hemoglobin 30.6 pg (27-33); Mean Corpuscular Volume 92.0 fl (85-98); Platelet Count 176 10^3/cmm (157-399); Red Blood Count 3.14 10^6/uL (3.85-5.65); White Blood Count 8.64 10^3/uL (3.29-11.43)
[2024-11-09] MEDS: HYDROcodone-acetaminophen 5-325 mg Tablet 1 TAB PO ×4 (00:55→14:01)
[2024-11-09 05:06] VITALS: BP 107/68; PULSE 76; RESP 16; TEMP 36.8
[2024-11-09] MEDS: PRENATAL VIT NO.130/IRON/FOLIC 1 EACH TABLET PO (09:12)
--- NOTE | 2024-11-09 10:07 | PC.NURSE ---
dressing removed by , dry and intact, open to air
--- NOTE | 2024-11-09 10:17 | PM.DCS ---
Discharge Providers Date of Admission: 11/07/24 15:41 Date of Discharge: November 09, 2024 Attending Provider at Admission: Janene Logan MD Attending Provider at Discharge: Janene Logan MD Primary Care Provider: ALDO Bowman Diagnoses at Discharge Discharge Diagnosis 1. Normal spontaneous vaginal delivery: 2. Sterilization consult: Reason for Visit Reason for Visit: IOL Hospital Course Hospital Course This is a 34-year-old G6 now P3 who had a normal spontaneous vaginal delivery of a viable male infant at 39 weeks 3 days gestation. She underwent a bilateral tubal ligation about 24 hours ago. She is ambulating, tolerating a regular diet, has average vaginal bleeding. Physical Exam Narrative: Alert and oriented, sitting up in bed, heart regular rate and rhythm, lungs clear to auscultation bilaterally, abdomen has good bowel sounds, abdomen is soft with appropriate postoperative tenderness, incision is clean dry and intact, extremities have 1+ edema but no calf tenderness Discharge Data Studies Completed and Pending Pending at discharge Category Date Time Status Pathology: Surgical [PTH] Routine Pth 11/08/24 10:19 Ordered Laboratory Results WBC 8.64 10^3/uL (3.29-11.43) 11/08/24 12:10 RBC 3.14 10^6/uL (3.85-5.65) L 11/08/24 12:10 Hgb 9.60 g/dL (11.27-16.99) L 11/08/24 12:10 Hct 28.9 % (36-47) L 11/08/24 12:10 MCV 92.0 fl (85-98) 11/08/24 12:10 MCH 30.6 pg (27-33) 11/08/24 12:10 MCHC 33.2 g/dL (30-55) 11/08/24 12:10 RDW 12.8 % (12.1-15.1) 11/08/24 12:10 Plt Count 176 10^3/cmm (157-399) 11/08/24 12:10 MPV 11.1 fL (7.4-10.4) H 11/08/24 12:10 Neut % (Auto) 72.0 % 11/07/24 14:30 Lymph % (Auto) 21.8 % 11/07/24 14:30 [place] % (Auto) 5.0 % 11/07/24 14:30 Eos % (Auto) 0.7 % 11/07/24 14:30 Baso % (Auto) 0.1 % 11/07/24 14:30 Neut # (Auto) 5.36 10^3/uL (1.8-7.7) 11/07/24 14:30 Lymph # (Auto) 1.6 10^3/uL (0.8-4.8) 11/07/24 14:30 [place] # (Auto) 0.4 10^3/uL (0.2-0.9) 11/07/24 14:30 Eos # (Auto) 0.1 10^3/uL (0.0-0.8) 11/07/24 14:30 Baso # (Auto) 0.0 10^3/uL (0.0-0.1) 11/07/24 14:30 Nucleated RBC % (auto) 0 % 11/07/24 14:30 Nucleated RBCs # 0.0 /100WBC 11/07/24 14:30 Urine Opiates Screen Negative ng/mL (Negative) 11/07/24 14:25 Ur Barbiturates Screen Negative ng/mL (Negative) 11/07/24 14:25 Ur Phencyclidine Scrn Negative ng/mL (Negative) 11/07/24 14:25 Ur Amphetamines Screen Negative ng/mL (Negative) 11/07/24 14:25 U Benzodiazepines Scrn Negative ng/mL (Negative) 11/07/24 14:25 Urine Cocaine Screen Negative ng/mL (Negative) 11/07/24 14:25 U Marijuana (THC) Screen Positive ng/mL (Negative) H 11/07/24 14:25 Blood Type O Positive 11/07/24 14:30 Rho(D) Type Rh positive 11/07/24 14:30 Antibody Screen Negative 11/07/24 14:30 Vitals Last Vital Signs Temp 98.3 F 11/09/24 05:06 Pulse 76 11/09/24 05:06 Resp 16 11/09/24 05:06 BP 107/68 11/09/24 05:06 Pulse Ox 97 11/08/24 15:30 O2 Del Method Room Air 11/08/24 20:25 Discharge Plan Discharge Patient Disposition: Home Condition: Stable Prescriptions: New ibuprofen 800 mg Tablet 800 mg PO TID PRN (Reason: Abdominal Discomfort) Qty: 15 0RF hydrocodone-acetaminophen 5-325 mg Tablet 1 tab PO Q4H PRN (Reason: Moderate Pain) Qty: 6 0RF Continued 1 cap PO DAILY Discontinued Baby Aspirin 81 mg PO DAILY Discharge Order = DC NOW: Discharge Order (Routine); Ordered 11/09/24 Ordered By: Janene Logan Referrals: Janene Logan MD [Physician, Family Practice] - 2 weeks Discharge Diet: Usual diet Discharge Activity: Limit activity as instructed Patient Instructions: Opioid Safety, Patient Portal & Joanie Instructions Activity Restrictions/Additional Instructions: Nothing per vagina for 6 weeks. No heavy lifting greater than 10 pounds for the next 2 weeks. Discharge Attestations Time Spent in Discharge Care*: less than 30 min Quality Metrics Clinical Quality Measures [ No reported AMI, CVA or VTE this stay] Coding Level of Care Code Acute Code for Chg Fwd Diagnoses Normal spontaneous vaginal delivery O80 Sterilization consult Z30.09
[2024-11-09 10:30] VITALS: BP 122/90; PULSE 78; RESP 16; TEMP 36.7
[2024-11-09 15:00] VITALS: BP 120/84; PULSE 75; RESP 16; TEMP 36.8
[2024-11-09 15:30] VITALS: BP 120/84; PULSE 75; RESP 16; TEMP 36.8; O2SAT 98
== END 2024-11-09 15:30 | disposition home or self-care (01) | DRG 798 ==
LOC: OPOB 15:41 → OBGYN 15:41
PROVIDERS: Admitting Provider Family Medicine; PCP Nurse Practitioner Family; Visit Provider Family Medicine
PROC: (CPT 58605; principal; 2024-11-08 09:00)
DX: O99.324 Drug use complicating childbirth (principal); Z37.0 Single live birth; F12.90 Cannabis use, unspecified, uncomplicated; Z3A.39 39 weeks gestation of pregnancy; Z30.09 Encounter for other general counseling and advice on contraception
CPT/HCPCS: 36415; 59409; 80306; 85025; 85027; 86850; 86900; 88302; J0330; J0690; J1100; J2250; J2405; J2590; J2704; J2765; J2795; J3010; J3490; J7030; J7120; J7121; J9999